=== PATIENT | female | born 1975 | race Caucasian/White ===

== ENCOUNTER 2017-07-06 18:12 | Emergency (ER) | payer OTHER ==
[~2017-07-06] VITALS: Ht 165.1 cm; Wt 95.9 kg
[2017-07-06 19:28] LABS: ADD MIUA? YES; BILIRUBIN NEGATIVE; BLOOD NEGATIVE; COLOR YELLOW ((YELLOW)); GLUCOSE (STRIP) NEGATIVE; KETONES NEGATIVE; LEUKOCYTES MODERATE; NITRITE NEGATIVE; PROTEIN (STRIP) 30; SPECIFIC GRAVITY 1.024 (1.000-1.030); UROBILINOGEN 0.2 MG/DL (0.2-1.0)
[2017-07-06 20:00] LABS: HEMATOCRIT 39.8 % (36.0-46.0); MCH 30.8 PG (29.0-34.0); MCHC 32.9 G/DL (30.0-36.0); MCV 93.6 FL (83-99); PLATELET COUNT 257 K/uL (156-360); RBC DIS.WIDTH-CV 11.8 % (11.8-14.6); RBC DIS.WIDTH-SD 40.2 % (39-53); RED BLOOD COUNT 4.25 M/uL (3.80-5.20); WHITE BLOOD COUNT 5.6 K/uL (4.1-10.2)
[2017-07-06 20:15] LABS: CHLORIDE 106 mEq/L (99-109); POTASSIUM 4.3 mEq/L (3.7-5.4); SODIUM 140 mEq/L (136-147)
[2017-07-06 20:17] LABS: GLUCOSE 105 mg/dL (70-99)
[2017-07-06 20:18] LABS: ANION GAP 10 MEQ/L (2-14)
[2017-07-06 20:19] LABS: TOTAL BILIRUBIN 0.2 mg/dL (0.0-1.0)
[2017-07-06 20:20] LABS: ALKALINE PHOSPHATASE 56 IU/L (3-129)
[2017-07-06 20:21] LABS: GFR ESTIMATE (CALCULATED) 57 mL/min/
[2017-07-06 20:22] LABS: UREA NITROGEN (BUN) 12 mg/dL (9-23)
[2017-07-06 20:24] LABS: LIPASE 57 U/L (1.0-51.0)
[2017-07-06 20:34] LABS: QUANTITATIVE HCG 6.6 MIU/ML
[2017-07-06 20:36] LABS: RED BLOOD CELLS NONE SEEN /HPF (0-5)
[2017-07-06 20:37] LABS: AMORPHOUS URATES CRYSTALS 3+; EPITHELIAL CELLS 2+ /HPF; UCUL ADDED? YES
[2017-07-06 20:38] LABS: MUCUS TRACE /LPF
[2017-07-06] MEDS ORDERED: NEURONTIN300 MG PO (20:56)
[2017-07-06] MEDS ORDERED: ZANAFLEX4 M1 PO (20:57)
[2017-07-06] MEDS ORDERED: CLONIDINE HCL0.1 MG PO (21:38)
[2017-07-06] MEDS ORDERED: ATARAX,VISTARIL50 MG PO (21:38)
[2017-07-06] MEDS ORDERED: PROMETHAZINE HC25 M1 PO (21:41)
[2017-07-06 21:50] VITALS: BP 143/98
== END 2017-07-06 21:59 | disposition home or self-care (01) ==
LOC: EME 18:12
DX: F11.23 Opioid dependence with withdrawal (principal); M79.7 Fibromyalgia; Z88.8 Allergy status to other drugs, medicaments and biological substances
CPT/HCPCS: 80053; 81003; 83690; 84702; 85027; 87086; 90839; 99281; 99285; J2405; J7030; Q0169; Q0177